=== PATIENT | male | born 1990 | race Caucasian/White ===

== ENCOUNTER 2016-12-12 20:14 | Emergency (ER) | payer OTHER ==
[~2016-12-12] VITALS: Ht 185.4 cm; Wt 120.2 kg
[2016-12-12 20:17] VITALS: BP 143/87
== END 2016-12-12 21:31 | disposition home or self-care (01) ==
LOC: EME 20:14
DX: S61.211D Laceration without foreign body of left index finger without damage to nail, subsequent encounter (principal)
CPT/HCPCS: 99281; 99282

== ENCOUNTER 2017-01-30 00:22 | Emergency (ER) | payer OTHER ==
[~2017-01-30] VITALS: Ht 188 cm; Wt 119.6 kg
[2017-01-30 00:24] VITALS: BP 143/68
[2017-01-30] MEDS ORDERED: TYLENOL WITH C1 EACH PO ×2 (01:12→01:23)
[2017-01-30] MEDS ORDERED: PEN-VEE K,VEET500 MG PO (01:12)
== END 2017-01-30 01:33 | disposition home or self-care (01) ==
LOC: RME 00:22 → EME 00:22 → RME 01:33
DX: K08.89 Other specified disorders of teeth and supporting structures (principal); J45.909 Unspecified asthma, uncomplicated; F17.200 Nicotine dependence, unspecified, uncomplicated
CPT/HCPCS: 99281; 99284